=== PATIENT | female | born 1950 | race Caucasian/White ===

== ENCOUNTER → 2016-04-27 | Outpatient (CLI) | payer BC ==
--- NOTE | 2016-04-27 10:57 | MM ---
Reason for exam: follow-up at short interval from prior study. Last mammogram was performed 6 months ago. History: Patient is postmenopausal. Family history of breast cancer in sister at age 60. Took estrogen for 6 years 2 months beginning at age 51. Took progesterone for 6 years 2 months beginning at age 51. Physical Findings: Nurse did not find any significant physical abnormalities on exam. MG 3D Diag Mammo W/Cad RT CC and MLO view(s) were taken of the right breast. Prior study comparison: October 19, 2015, right breast MG work up mamm w CAD RT. September 22, 2015, bilateral MG screening mammo w CAD. August 04, 2014, bilateral MG screening mammo w CAD. There are scattered fibroglandular densities. 9 o'clock mass slightly larger in the interval. These results were verbally communicated with the patient and result sheet given to the patient on 04/27/16. ASSESSMENT: Incomplete: need additional imaging evaluation, BI-RAD 0 RECOMMENDATION: Ultrasound of the right breast.
--- NOTE | 2016-04-27 11:00 | USB ---
Reason for exam: follow-up at short interval from prior study. History: Patient is postmenopausal. Family history of breast cancer in sister at age 60. Took estrogen for 6 years 2 months beginning at age 51. Took progesterone for 6 years 2 months beginning at age 51. US Breast RT Right breast ultrasound including all four quadrants, the retroareolar region and axilla demonstrates a 4 x 3 x 4mm oval, cystic lesion at 9 o'clock, slightly larger from previous but now clearly cystic. Likely correlates to the mammographic finding. A couple tiny cysts are noted at 10 o'clock as well measuring up to 3mm. No other solid or cystic lesion. These results were verbally communicated with the patient and result sheet given to the patient on 04/27/16. ASSESSMENT: Probably benign, BI-RAD 3 RECOMMENDATION: Follow-up diagnostic mammogram of both breasts in 6 months.
== END | disposition home or self-care (01) ==
LOC: RADMAMWWP 09:33
PROVIDERS: ATTEND Obstetrics & Gynecology
DX: N64.9 Disorder of breast, unspecified (principal)
CPT/HCPCS: 76641; G0206; G0279

== ENCOUNTER 2016-09-23 21:52 | Emergency (ER) | payer BC ==
[2016-09-23] MEDS ORDERED: HYDROcodone/APAP 10-325MG 1 EACH TAB PO ONE (23:02)
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
[2016-09-23] MEDS ORDERED: HYDROmorphone 1 MG/ML 1 ML SYRINGE IM STA (23:04)
[2016-09-23] MEDS ORDERED: ONDANSETRON 4 MG ODT STARTER PACK 2 TAB BTL PO STA (23:07)
[2016-09-23] MEDS ORDERED: cloNIDine HCL 0.1 MG TAB PO STA (23:07)
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
[2016-09-23 23:26] VITALS: PULSE 67
[2016-09-23 23:50] VITALS: BP 183/86; RESP 18; TEMP 98
== END 2016-09-23 23:56 | disposition home or self-care (01) ==
LOC: EC 21:52
DX: S92.332A Displaced fracture of third metatarsal bone, left foot, initial encounter for closed fracture (principal); S92.342A Displaced fracture of fourth metatarsal bone, left foot, initial encounter for closed fracture; I10 Essential (primary) hypertension; E07.9 Disorder of thyroid, unspecified; Z88.0 Allergy status to penicillin; Z91.030 Bee allergy status; Z91.09 Other allergy status, other than to drugs and biological substances; Z79.82 Long term (current) use of aspirin; Z79.899 Other long term (current) drug therapy; X50.9XXA Other and unspecified overexertion or strenuous movements or postures, initial encounter
CPT/HCPCS: 73610; 73620; 99284; 29515; 96372; J1170; S0119

== ENCOUNTER → 2016-10-05 | Outpatient (CLI) | payer BC ==
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
== END | disposition home or self-care (01) ==
LOC: RADCTMAIN 12:41
PROVIDERS: ATTEND Orthopaedic Surgery
DX: S92.322A Displaced fracture of second metatarsal bone, left foot, initial encounter for closed fracture (principal); S92.332A Displaced fracture of third metatarsal bone, left foot, initial encounter for closed fracture; S92.342A Displaced fracture of fourth metatarsal bone, left foot, initial encounter for closed fracture; S82.402A Unspecified fracture of shaft of left fibula, initial encounter for closed fracture

== ENCOUNTER → 2017-01-12 | Outpatient (CLI) | payer BC ==
--- NOTE | 2017-01-12 08:15 | MM ---
Reason for exam: follow-up at short interval from prior study. Last mammogram was performed 8 months ago. History: Patient is postmenopausal. Family history of breast cancer in sister at age 60. Took estrogen for 6 years 2 months beginning at age 51. Took progesterone for 6 years 2 months beginning at age 51. Physical Findings: Nurse did not find any significant physical abnormalities on exam. MG Diagnostic Mammo w CAD [facility] Bilateral CC and MLO view(s) were taken. Prior study comparison: April 27, 2016, right breast MG 3d diag mammo w/cad RT. October 19, 2015, right breast MG work up mamm w CAD RT. The breast tissue is heterogeneously dense. This may lower the sensitivity of mammography. Unchanged mammographic appearance of right upper outer quadrant rounded mass sonographically probably benign simple cyst. These results were verbally communicated with the patient and result sheet given to the patient on 01/12/17. ASSESSMENT: Incomplete: need additional imaging evaluation, BI-RAD 0 RECOMMENDATION: Ultrasound of the right breast. (upper outer quadrant)
--- NOTE | 2017-01-12 08:18 | USB ---
Reason for exam: additional evaluation requested from abnormal screening. History: Patient is postmenopausal. Family history of breast cancer in sister at age 60. Took estrogen for 6 years 2 months beginning at age 51. Took progesterone for 6 years 2 months beginning at age 51. US Breast Limited RT Right breast ultrasound demonstrates a 0.4 x 0.3 x 0.4cm cystic lesion at 9 o'clock prior 4 x 3 x 4mm, cystic, unchanged, benign and a lesion too small to characterize at 10 o'clock, unchanged, benign. These results were verbally communicated with the patient and result sheet given to the patient on 01/12/17. ASSESSMENT: Benign, BI-RAD 2 RECOMMENDATION: Routine screening mammogram of both breasts in 1 year.
== END | disposition home or self-care (01) ==
LOC: RADMAMWWP 06:51
PROVIDERS: ATTEND Obstetrics & Gynecology
DX: R92.8 Other abnormal and inconclusive findings on diagnostic imaging of breast (principal)
CPT/HCPCS: 76642; G0204

== ENCOUNTER → 2018-01-15 | Outpatient (CLI) | payer BC ==
--- NOTE | 2018-01-16 13:24 | MM ---
Reason for exam: screening (asymptomatic). Last mammogram was performed 1 year ago. History: Patient is postmenopausal. Family history of breast cancer in sister at age 60. Took estrogen for 6 years 2 months beginning at age 51. Took progesterone for 6 years 2 months beginning at age 51. Physical Findings: A clinical breast exam by your physician is recommended on an annual basis and results should be correlated with mammographic findings. MG Screening Mammo w CAD Bilateral CC and MLO view(s) were taken. XCCL view(s) were taken of the left breast. Prior study comparison: January 12, 2017, bilateral MG diagnostic mammo w CAD [facility]. April 27, 2016, right breast MG 3d diag mammo w/cad RT. The breast tissue is heterogeneously dense. This may lower the sensitivity of mammography. There is a upper central left mass at middle depth, new from priors. No suspicious abnormality on the right breast. ASSESSMENT: Incomplete: need additional imaging evaluation, BI-RAD 0 RECOMMENDATION: Special view mammogram of the left breast. If lesion persists on supplemental views, image directed ultrasound is recommended. [facility] will attempt to contact patient to return for supplemental views and ultrasound if indicated.
== END | disposition home or self-care (01) ==
LOC: RADMAMWWP 08:06
PROVIDERS: ATTEND Family Medicine
DX: Z12.31 Encounter for screening mammogram for malignant neoplasm of breast (principal)
CPT/HCPCS: 77067

== ENCOUNTER → 2018-02-09 | Outpatient (CLI) | payer BC ==
--- NOTE | 2018-02-09 09:47 | MM ---
Reason for exam: additional evaluation requested from abnormal screening. Last mammogram was performed 1 month ago. History: Patient is postmenopausal. Family history of breast cancer in sister at age 60. Took estrogen for 6 years 2 months beginning at age 51. Took progesterone for 6 years 2 months beginning at age 51. Physical Findings: Nurse did not find any significant physical abnormalities on exam. MG 3D Work Up W/Cad LT Spot compression CC, spot compression MLO, and ML view(s) were taken of the left breast. Prior study comparison: January 15, 2018, bilateral MG screening mammo w CAD. January 12, 2017, bilateral MG diagnostic mammo w CAD [facility]. The breast tissue is heterogeneously dense. This may lower the sensitivity of mammography. There is no discrete abnormality on compression. No significant new findings when compared with previous films. These results were verbally communicated with the patient and result sheet given to the patient on 02/09/18. ASSESSMENT: Benign, BI-RAD 2 RECOMMENDATION: Return to routine screening mammogram schedule for both breasts.
== END | disposition home or self-care (01) ==
LOC: RADMAMWWP 06:56
PROVIDERS: ATTEND Family Medicine
DX: R92.8 Other abnormal and inconclusive findings on diagnostic imaging of breast (principal)
CPT/HCPCS: 77061; 77065

== ENCOUNTER → 2019-02-11 | Outpatient (CLI) | payer MEDICARE ==
[2019-02-11 10:29] LABS: HCT 44.4 % (34.0-46.0); HGB 14.5 gm/dL (11.4-16.0); MCH 28.3 pg (25.0-35.0); MCHC 32.7 g/dL (31.0-37.0); MCV 86.4 fL (80.0-100.0); Mean Platelet Volume 7.3; Platelet Count 195 k/uL (150-450); RBC 5.14 m/uL (3.80-5.40); RDW 12.9 % (11.5-15.5); WBC 4.5 k/uL (3.8-10.6)
[2019-02-11 17:22] LABS: African American GFR (CKD) 103.9 (60.0-200.0); Anion Gap 6.9 mmol/L (4.00-12.00); BUN/Creat Ratio 35.71 Ratio (12.00-20.00); Calcium 9.6 mg/dL (8.7-10.3); Carbon Dioxide 28.1 mmol/L (21.6-31.8); Chol/HDL Ratio 2.86; Magnesium 1.9 mg/dL (1.5-2.4); Non-African American GFR(CKD) 89.7 (60.0-200.0); Potassium 4.3 mmol/L (3.5-5.5)
[2019-02-11 17:30] LABS: T4, Free (Free Thyroxine) 1.2 ng/dL (0.80-1.80)
[2019-02-11 21:14] LABS: Hemoglobin A1C 5.1 % (4.0-6.0)
== END | disposition home or self-care (01) ==
LOC: LABWHC1 09:39
PROVIDERS: ATTEND Family Medicine
DX: I10 Essential (primary) hypertension (principal); E03.9 Hypothyroidism, unspecified; M81.0 Age-related osteoporosis without current pathological fracture; E66.3 Overweight
CPT/HCPCS: 36415; 80048; 80061; 82306; 83036; 83735; 84439; 84443; 84450; 84460; 85027

== ENCOUNTER → 2019-02-11 | Outpatient (CLI) | payer MEDICARE ==
--- NOTE | 2019-02-11 10:28 | BD ---
EXAMINATION TYPE: Axial Bone Density DATE OF EXAM: 02/11/2019 COMPARISON: 09.11.2014 CLINICAL HISTORY: M 81.0 Height: Weight: 148.6 FRAX RISK QUESTIONS: Alcohol (3 or more units per day): no Family History (Parent hip fracture): no Glucocorticoids (More than 3mos): no (Ex: prednisone, prednisolone, methylprednisolone, dexamethasone, and hydrocortisone). History of Fracture in Adulthood: yes Secondary Osteoporosis: 1. Type 1 Diabetes: no 2. Hyperthyroidism: no 3. Menopause before 45: yes 4. Malnutrition: no 5. Chronic liver disease: no Rheumatoid Arthritis: no Current Tobacco Use: no RISK FACTORS HISTORY OF: Family History of Osteoporosis: yes Active: yes Diet low in dairy products/other sources of calcium: no Postmenopausal woman: age 44 Lost more than 2 inches in height since high school: no MEDICATIONS: lisinopril Thyroid Medications: levothyroxine How Long: since age 19 Osteoporosis Medications: atenolol How Lon years Additional History: EXAM MEASUREMENTS: Bone mineral densitometry was performed using the [employer]. Bone mineral density as measured about the Lumbar spine is: ----- L1-L4(G/cm2): 1.028 T Score Values are as follows: ----- L2: -1.4 ----- L3: -1.4 ----- L4: -0.8 ----- L1-L4: -1.3 Bone mineral density has: increased 9.9 % since study of: 09-11-2014 Bone mineral density about the R hip (g/cm2): 0827 Bone mineral density about the L hip (g/cm2): 0.828 T Score values are as follows: -----R Neck: -1.5 -----L Neck: -1.5 -----R Total: -0.8 -----L Total: -0.8 Bone mineral density has: decreased -2.5 % since study of: 09.11.2014 IMPRESSION: Osteopenia (T Score between -2.5 and -1). There is slightly increased risk of fracture and the patient may be considered for treatment. Re-Screen 2-5 years. NOTE: T-SCORE=SD OF THE YOUNG ADULT MEAN.
--- NOTE | 2019-02-11 13:17 | MM ---
Reason for exam: screening (asymptomatic). Last mammogram was performed 1 year ago. History: Patient is postmenopausal. Family history of breast cancer in sister at age 60. Took estrogen for 6 years 2 months beginning at age 51. Took progesterone for 6 years 2 months beginning at age 51. Physical Findings: A clinical breast exam by your physician is recommended on an annual basis and results should be correlated with mammographic findings. MG 3D Screening Mammo W/Cad Bilateral CC and MLO view(s) were taken. Prior study comparison: February 09, 2018, left breast MG 3d work up w/cad LT. January 15, 2018, bilateral MG screening mammo w CAD. The breast tissue is heterogeneously dense. This may lower the sensitivity of mammography. No suspicious abnormality. No significant changes when compared with prior studies. ASSESSMENT: Negative, BI-RAD 1 RECOMMENDATION: Routine screening mammogram of both breasts in 1 year.
== END | disposition home or self-care (01) ==
LOC: RADMAMWWP 08:50
PROVIDERS: ATTEND Family Medicine
DX: Z12.31 Encounter for screening mammogram for malignant neoplasm of breast (principal); M85.80 Other specified disorders of bone density and structure, unspecified site
CPT/HCPCS: 77063; 77067; 77080

== ENCOUNTER → 2019-12-12 | Outpatient (CLI) | payer MEDICARE | END | disposition home or self-care (01) | LOC: LABWHC1 13:08 | PROVIDERS: ATTEND Family Medicine | DX: Z20.828 Contact with and (suspected) exposure to other viral communicable diseases (principal) | CPT/HCPCS: U0003; C9803 ==

== ENCOUNTER → 2019-12-17 | Outpatient (CLI) | payer MEDICARE ==
[2019-12-17 12:47] LABS: HCT 48.2 % (34.0-46.0); HGB 15.3 gm/dL (11.4-16.0); MCH 27.7 pg (25.0-35.0); MCHC 31.7 g/dL (31.0-37.0); MCV 87.4 fL (80.0-100.0); Mean Platelet Volume 7.2; Platelet Count 206 k/uL (150-450); RBC 5.52 m/uL (3.80-5.40); RDW 13.3 % (11.5-15.5)
[2019-12-17 20:31] LABS: African American GFR (CKD) 87.8 (60.0-200.0); Anion Gap 8.4 mmol/L (4.00-12.00); BUN/Creat Ratio 26.25 Ratio (12.00-20.00); Calcium 10.2 mg/dL (8.7-10.3); Carbon Dioxide 26.6 mmol/L (21.6-31.8); Magnesium 2.1 mg/dL (1.5-2.4); Non-African American GFR(CKD) 75.8 (60.0-200.0); Potassium 4.8 mmol/L (3.5-5.5)
[2019-12-17 20:39] LABS: T4, Free (Free Thyroxine) 1.8 ng/dL (0.80-1.80)
== END | disposition home or self-care (01) ==
LOC: LABWHC1 10:57
PROVIDERS: ATTEND Family Medicine
DX: E03.9 Hypothyroidism, unspecified (principal); M81.0 Age-related osteoporosis without current pathological fracture; I10 Essential (primary) hypertension
CPT/HCPCS: 36415; 80048; 82306; 83735; 84439; 84443; 85027

== ENCOUNTER → 2020-03-16 | Outpatient (CLI) | payer MEDICARE ==
--- NOTE | 2020-03-17 11:20 | MM ---
Reason for exam: screening (asymptomatic). Last mammogram was performed 1 year and 1 month ago. History: Patient is postmenopausal. Family history of breast cancer in sister at age 60. Took estrogen for 6 years 2 months beginning at age 51. Took progesterone for 6 years 2 months beginning at age 51. Physical Findings: A clinical breast exam by your physician is recommended on an annual basis and results should be correlated with mammographic findings. MG 3D Screening Mammo W/Cad Bilateral CC and MLO view(s) were taken. Prior study comparison: February 11, 2019, bilateral MG 3d screening mammo w/cad. February 09, 2018, left breast MG 3d work up w/cad LT. There are scattered fibroglandular densities. There is chronic nodularity bilaterally. No significant changes when compared with prior studies. ASSESSMENT: Benign, BI-RAD 2 RECOMMENDATION: Routine screening mammogram of both breasts in 1 year.
== END | disposition home or self-care (01) ==
LOC: RADMAMWWP 13:16
PROVIDERS: ATTEND Family Medicine
DX: Z12.31 Encounter for screening mammogram for malignant neoplasm of breast (principal)
CPT/HCPCS: 77063; 77067

== ENCOUNTER → 2021-04-08 | Outpatient (CLI) | payer MEDICARE ==
--- NOTE | 2021-04-09 14:34 | MM ---
Reason for exam: screening (asymptomatic). Last mammogram was performed 1 year and 1 month ago. History: Patient is postmenopausal. Family history of breast cancer in sister at age 60. Took estrogen for 6 years 2 months beginning at age 51. Took progesterone for 6 years 2 months beginning at age 51. Physical Findings: A clinical breast exam by your physician is recommended on an annual basis and results should be correlated with mammographic findings. MG 3D Screening Mammo W/Cad Bilateral CC and MLO view(s) were taken. Prior study comparison: March 16, 2020, bilateral MG 3d screening mammo w/cad. February 11, 2019, bilateral MG 3d screening mammo w/cad. The breast tissue is heterogeneously dense. This may lower the sensitivity of mammography. Focal asymmetry upper outer left breast zone A. This finding is changed when compared with previous exams. ASSESSMENT: Incomplete: need additional imaging evaluation, BI-RAD 0 RECOMMENDATION: Special view mammogram of the left breast. If lesion persists on supplemental views, image directed ultrasound is recommended. [facility] will attempt to contact patient to return for supplemental views and ultrasound if indicated.
== END | disposition home or self-care (01) ==
LOC: RADMAMWWP 09:30
PROVIDERS: ATTEND Family Medicine
DX: Z12.31 Encounter for screening mammogram for malignant neoplasm of breast (principal); Z78.0 Asymptomatic menopausal state; Z80.3 Family history of malignant neoplasm of breast
CPT/HCPCS: 77063; 77067

== ENCOUNTER → 2021-04-14 | Outpatient (CLI) | payer MEDICARE ==
--- NOTE | 2021-04-14 10:24 | MM ---
Reason for exam: additional evaluation requested from abnormal screening. Last mammogram was performed less than 1 month ago. History: Patient is postmenopausal. Family history of breast cancer in sister at age 60. Took estrogen for 6 years 2 months beginning at age 51. Took progesterone for 6 years 2 months beginning at age 51. Physical Findings: Nurse did not find any significant physical abnormalities on exam. MG 3D Work Up W/Cad LT Spot compression CC, spot compression MLO, LM, and CCRM view(s) were taken of the left breast. Prior study comparison: April 08, 2021, bilateral MG 3d screening mammo w/cad. March 16, 2020, bilateral MG 3d screening mammo w/cad. Upper outer quadrant ultrasound recommended for density 4cm from nipple measuring 1cm. These results were verbally communicated with the patient and result sheet given to the patient on 04/14/21. ASSESSMENT: Incomplete: need additional imaging evaluation, BI-RAD 0 RECOMMENDATION: Ultrasound of the left breast.
--- NOTE | 2021-04-14 10:27 | USB ---
Reason for exam: additional evaluation requested from abnormal screening. History: Patient is postmenopausal. Family history of breast cancer in sister at age 60. Took estrogen for 6 years 2 months beginning at age 51. Took progesterone for 6 years 2 months beginning at age 51. US Breast Workup Limited LT Left limited breast ultrasound including focal area of concern, retroareolar and axilla demonstrates a 0.2 x 0.2 x 0.2cm lesion too small to characterize at 1 o'clock and a 0.7 x 0.3 x 0.3cm lesion at 3 o'clock. These results were verbally communicated with the patient and result sheet given to the patient on 04/14/21. ASSESSMENT: Benign, BI-RAD 2 RECOMMENDATION: Return to routine screening mammogram schedule for both breasts.
== END | disposition home or self-care (01) ==
LOC: RADMAMWWP 08:41
PROVIDERS: ATTEND Family Medicine
DX: N64.89 Other specified disorders of breast (principal); Z80.3 Family history of malignant neoplasm of breast; Z78.0 Asymptomatic menopausal state
CPT/HCPCS: 77065; 76642; G0279; 77061

== ENCOUNTER → 2022-07-06 | Outpatient (CLI) | payer MEDICARE ==
--- NOTE | 2022-07-06 09:30 | BD ---
EXAMINATION TYPE: Axial Bone Density DATE OF EXAM: 07/06/2022 CLINICAL HISTORY: 71 years old Female. ICD-10 CODE: M85.80 DISRD OF BONE DENSITY AND STRUCTURE Height: Weight: 156.0 FRAX RISK QUESTIONS: Alcohol (3 or more units per day): no Family History (Parent hip fracture): no Glucocorticoids (More than 3mos): no (Ex: prednisone, prednisolone, methylprednisolone, dexamethasone, and hydrocortisone). History of Fracture in Adulthood: yes Secondary Osteoporosis: 1. Type 1 Diabetes: no 2. Hyperthyroidism: no 3. Menopause before 45: yes 4. Malnutrition: no 5. Chronic liver disease: no Rheumatoid Arthritis: no Current Tobacco Use: no RISK FACTORS HISTORY OF: Surgery to Spine/Hip(right/left)/Wrist (right/left): no Family History of Osteoporosis: yes Active: no Diet low in dairy products/other sources of calcium: no Postmenopausal woman: yes Lost more than 2 inches in height since high school: no MEDICATIONS: Thyroid Medications: levothyroxine How Lon years Additional History: EXAM MEASUREMENTS: Bone mineral densitometry was performed using the [employer]. Bone mineral density as measured about the Lumbar spine is: ----- L1-L4(G/cm2): 1.029 T Score Values are as follows: ----- L1: -2.0 ----- L2: -1.0 ----- L3: -1.3 ----- L4: -1.0 ----- L1-L4: -1.3 Z Score Values are as follows: ----- L1: -0.5 ----- L2: 0.5 ----- L3: 0.2 ----- L4: 0.5 ----- L1-L4: 0.2 Bone mineral density has: increased 0.1 % since study of: 02.11.2019 Bone mineral density about the R hip (g/cm2): 0.910 Bone mineral density about the L hip (g/cm2): 0.893 T Score values are as follows: -----R Neck: -1.8 -----L Neck: -1.5 -----R Total: -0.8 -----L Total: -0.9 Z Score values are as follows: -----R Neck: -0.2 -----L Neck: 0.1 -----R Total: 0.6 -----L Total: 0.4 Bone mineral density has: decreased -0.2 % since study of: 02.11.2019 FRAX%s: The graph provided illustrates a 16.4% chance for a major osteoporotic fx and a 2.7% chance f or the hips probability for fx in 10 years time. IMPRESSION: Osteopenia (T Score between -2.5 and -1). There is slightly increased risk of fracture and the patient may be considered for treatment. Re-Screen 2-5 years. NOTE: T-SCORE=SD OF THE YOUNG ADULT MEAN.
--- NOTE | 2022-07-07 09:14 | MM ---
Reason for Exam: Screening (asymptomatic). Last mammogram was performed 1 year(s) and 3 month(s) ago. Patient History: Menarche at age 13. First Full-Term at age 24. Postmenopausal. Estrogen for 6 years, 2 months, from age 51 until age 58. Progesterone for 6 years, 2 months, from age 51 until age 58. Sister had breast cancer, age 60. Risk Values: Lluvia 5 year model risk: 3.3%. NCI Lifetime model risk: 9.5%. Prior Study Comparison: 03/16/2020 Bilateral Screening Mammogram, [facility]. 04/08/2021 Bilateral Screening Mammogram, [facility]. 04/14/2021 Left Diagnostic Mammogram, [facility]. Tissue Density: The breast tissue is heterogeneously dense. This may lower the sensitivity of mammography. Findings: Analyzed By CAD. Stable asymmetric prominent tissue upper aspect left breast. Benign-appearing right axillary lymph nodes are redemonstrated. Occasional scattered tiny benign-appearing round calcification bilaterally is redemonstrated. There is no suspicious group of microcalcifications or new suspicious mass in either breast. Overall Assessment: Benign, BI-RAD 2 Management: Screening Mammogram of both breasts in 1 year. . Patient should continue monthly self-breast exams. A clinical breast exam by your physician is recommended on an annual basis. This exam should not preclude additional follow-up of suspicious palpable abnormalities. Note on Lluvia scores and lifetime risk: 1. A Lluvia score greater than 3% is considered moderate risk. If this is the case, consider specialist referral to assess eligibility for a risk reducing agent. 2. If overall lifetime risk for the development of breast cancer is 20% or higher, the patient may qualify for future screening with alternating mammogram and breast MRI. Electronically signed and approved by: Gucci Rey M.D.
== END | disposition home or self-care (01) ==
LOC: RADMAMWWP 07:58
PROVIDERS: ATTEND Family Medicine
DX: Z12.31 Encounter for screening mammogram for malignant neoplasm of breast (principal); M85.89 Other specified disorders of bone density and structure, multiple sites; Z78.0 Asymptomatic menopausal state; Z80.3 Family history of malignant neoplasm of breast
CPT/HCPCS: 77063; 77067; 77080

== ENCOUNTER → 2023-07-10 | Outpatient (CLI) | payer MEDICARE ==
--- NOTE | 2023-07-10 13:44 | MM ---
Reason for Exam: Screening (asymptomatic). Last screening mammogram was performed 12 month(s) ago. Patient History: Menarche at age 13. First Full-Term at age 24. Postmenopausal. Estrogen for 6 years, 2 months, from age 51 until age 58. Progesterone for 6 years, 2 months, from age 51 until age 58. Sister had breast cancer, age 60. Risk Values: Lluvia 5 year model risk: 3.3%. NCI Lifetime model risk: 9.1%. Prior Study Comparison: 04/08/2021 Bilateral Screening Mammogram, [facility]. 04/14/2021 Left Diagnostic Mammogram, [facility]. 07/06/2022 Bilateral MG 3D screening mammo w/cad, [facility]. Tissue Density: There are scattered areas of fibroglandular density. Findings: Analyzed By CAD. Right breast: There is no suspicious group of microcalcifications or new suspicious mass. Left breast: There is no suspicious group of microcalcifications or new suspicious mass. Overall Assessment: Negative, BI-RAD 1 Management: Screening Mammogram of both breasts in [address] [facility] will attempt to contact patient to return for supplemental views and ultrasound if indicated. Patient should continue monthly self-breast exams. A clinical breast exam by your physician is recommended on an annual basis. This exam should not preclude additional follow-up of suspicious palpable abnormalities. Note on Lluvia scores and lifetime risk: 1. A Lluvia score greater than 3% is considered moderate risk. If this is the case, consider specialist referral to assess eligibility for a risk reducing agent. 2. If overall lifetime risk for the development of breast cancer is 20% or higher, the patient may qualify for future screening with alternating mammogram and breast MRI. Electronically signed and approved by: Neo Lama DO
== END | disposition home or self-care (01) ==
LOC: RADMAMWWP 09:35
PROVIDERS: ATTEND Family Medicine
DX: Z12.31 Encounter for screening mammogram for malignant neoplasm of breast (principal); Z80.3 Family history of malignant neoplasm of breast; Z78.0 Asymptomatic menopausal state
CPT/HCPCS: 77063; 77067

== ENCOUNTER → 2024-08-06 | Outpatient (CLI) | payer MEDICARE ==
--- NOTE | 2024-08-06 10:31 | MM ---
Reason for Exam: Screening (asymptomatic). Last mammogram was performed 1 year(s) and 1 month(s) ago. Patient History: Menarche at age 13. First Full-Term at age 24. Postmenopausal. Estrogen for 6 years, 2 months, from age 51 until age 58. Progesterone for 6 years, 2 months, from age 51 until age 58. Sister had breast cancer, age 60. Risk Values: Lluvia 5 year model risk: 3.4%. NCI Lifetime model risk: 8.6%. Prior Study Comparison: 04/14/2021 Left Diagnostic Mammogram, [facility]. 07/06/2022 Bilateral MG 3D screening mammo w/cad, [facility]. 07/10/2023 Bilateral MG 3D screening mammo w/cad, [facility]. Tissue Density: The breasts are heterogeneously dense, which may obscure small masses. Findings: Analyzed By CAD. There are benign-appearing round calcifications scattered throughout the bilateral breasts. Benign-appearing right axillary lymph nodes are redemonstrated. There is no suspicious group of microcalcifications or new suspicious mass in either breast. Overall Assessment: Benign, BI-RAD 2 Management: Screening Mammogram of both breasts in 1 year. . Patient should continue monthly self-breast exams. A clinical breast exam by your physician is recommended on an annual basis. This exam should not preclude additional follow-up of suspicious palpable abnormalities. Note on Lluvia scores and lifetime risk: 1. A Lluvia score greater than 3% is considered moderate risk. If this is the case, consider specialist referral to assess eligibility for a risk reducing agent. 2. If overall lifetime risk for the development of breast cancer is 20% or higher, the patient may qualify for future screening with alternating mammogram and breast MRI. [facility], , 08/06/2024 10:28 AM. Electronically signed and approved by: Gucci Rey M.D.
== END | disposition home or self-care (01) ==
LOC: RADMAMWWP 09:01
PROVIDERS: ATTEND Family Medicine
DX: Z12.31 Encounter for screening mammogram for malignant neoplasm of breast (principal); R92.333 Mammographic heterogeneous density, bilateral breasts; Z78.0 Asymptomatic menopausal state; Z80.3 Family history of malignant neoplasm of breast
CPT/HCPCS: 77063; 77067